=== PATIENT | male | born 1985 | race African-American/Black ===

== ENCOUNTER 2022-10-10 09:43 | Inpatient (IN) | payer MEDICAID ==
[~2022-10-10] VITALS: Ht 167.6 cm; Wt 52.2 kg
[2022-10-10] MEDS ORDERED: SODIUM CHLORIDE 0.9% 1000ML BAG (SEPSIS BOLUS) IV ONE (10:00)
[2022-10-10] MEDS ORDERED: VANCOMYCIN 1G PREMIX 200 ML IV ONE (10:00)
[2022-10-10] MEDS ORDERED: ACETAMINOPHEN 650MG SUPP PR STA (10:00)
[2022-10-10] MEDS ORDERED: PIPERACILLIN/TAZ 3.375G PREMIX 50 ML IV ONE (10:00)
[2022-10-10 11:24] LABS: BG BASE EXCESS 3.2 mmol/L (-2.0-2.0); BG CARBOXYHEMOGLOBIN 0.3 % (0.5-1.5); BG DEOXYHEMOGLOBIN 0.8 % (0.0-5.0); BG FRACTION INSPIRED OXYGEN 44; BG HCO3 ACT 25.6 mmol/L (22.0-26.0); BG METHEMOGLOBIN 0.4 % (0.0-1.5); BG OXYGEN SATURATION 99.2 % (92.0-98.5); BG OXYHEMOGLOBIN 98.5 % (94.0-97.0); BG PH 7.535 (7.350-7.450); BG PO2 205.4 mmHg (75.0-100.0); BG SAMPLE SITE RIGHT RADIAL; BG TOTAL HEMOGLOBIN 9.2 g/dL (12.0-18.0); BG VENT MODE MASK - SIMPLE
[2022-10-10 12:34] LABS: HEMATOCRIT. 27.1 % (42.0-52.0); HEMOGLOBIN. 8.6 g/dL (14.0-18.0); MEAN CORPUSCULAR HEMOGLOBIN 25.5 pg (28.0-32.0); MEAN CORPUSCULAR VOLUME 79.9 fL (80.0-94.0); MEAN PLATELET VOLUME 8.9 fl (7.4-10.4); PLATELET 303 x1000/uL (130-400); RED BLOOD CELL COUNT 3.39 mill/uL (4.7-6.1); RED CELL DISTRIBUTION WIDTH 19.7 % (11.6-14.6)
[2022-10-10 12:41] LABS: CHLORIDE 100 mEq/L (98-107)
[2022-10-10 12:44] LABS: INR 1.2; PROTHROMBIN TIME 12.4 sec (9.6-11.0)
[2022-10-10 12:50] LABS: CLARITY URINE CLOUDY (CLEAR); COLOR URINE YELLOW (YELLOW); KETONES URINE NEGATIVE (NEGATIVE); LEUKOCYTE ESTERASE URINE 2+ (NEGATIVE); NITRITE URINE POSITIVE (NEGATIVE); OCCULT BLOOD URINE NEGATIVE (NEGATIVE); PROTEIN URINE 1+ (NEGATIVE)
[2022-10-10 12:51] LABS: ETHANOL BLOOD < 10 mg/dL
[2022-10-10 13:24] LABS: NUCLEATED RED BLOOD CELLS 1 /100 WBC; PLATELET ESTIMATE NORMAL
[2022-10-10 13:28] LABS: *AMPHETAMINES SCREEN URINE NEGATIVE (NEGATIVE); *BARBITURATES SCREEN URINE NEGATIVE (NEGATIVE); *BENZODIAZEPINES SCREEN URINE NEGATIVE (NEGATIVE); *COCAINE SCREEN URINE NEGATIVE (NEGATIVE); CANNABINOID URINE SCREEN NEGATIVE (NEGATIVE); METHADONE URINE SCREEN NEGATIVE (NEGATIVE); OPIATES URINE SCREEN NEGATIVE (NEGATIVE); PHENCYCLIDINE URINE SCREEN NEGATIVE (NEGATIVE)
[2022-10-10] MEDS ORDERED: PIPERACILLIN/TAZ 3.375G PREMIX 50 ML IV NR (15:00)
[2022-10-10] MEDS: SODIUM CHLORIDE 0.9% 1,000 ML IV SCH (15:45)
[2022-10-10] MEDS ORDERED: HYDROCODONE/ACETAMINOPHEN 5/325MG TABLET PO PRN (15:45)
[2022-10-10] MEDS ORDERED: LORAZEPAM 2MG/ML CPJ IV PRN (15:45)
[2022-10-10] MEDS ORDERED: CEFTRIAXONE 1 G PREMIX 50 ML IV SCH (15:45)
[2022-10-10] MEDS ORDERED: ONDANSETRON HCL 4MG/2ML INJ IV PRN (15:45)
[2022-10-10] MEDS ORDERED: CEFTRIAXONE 1,000 MG in DEXTROSE 5% WATER 50 ML IV SCH (16:00)
[2022-10-10] MEDS ORDERED: NALOXONE HCL 0.4MG/ML VIAL IV PRN (16:00)
[2022-10-10] MEDS ORDERED: ACETAMINOPHEN 650MG SUPP PR NR (17:00)
[2022-10-10] MEDS: VANCOMYCIN 1G PREMIX 200 ML IV SCH (17:36)
[2022-10-10] MEDS: ENOXAPARIN 40MG/0.4ML SYR SUBCUT SCH (17:39)
[2022-10-10] MEDS: CEFEPIME 1,000 MG in DEXTROSE 5% WATER 50 ML IV SCH (18:56)
[2022-10-11] VITALS (11 sets, daily range): BP systolic 106–127; BP diastolic 68–91
[2022-10-11] MEDS: VANCOMYCIN 1G PREMIX 200 ML IV SCH
[2022-10-11] MEDS: SODIUM CHLORIDE 0.9% 1,000 ML IV SCH (02:10)
[2022-10-11] MEDS: CEFEPIME 1,000 MG in DEXTROSE 5% WATER 50 ML IV SCH ×2 (06:36→17:31)
[2022-10-11] MEDS: FOLIC ACID 1MG TABLET PO SCH (09:51)
[2022-10-11] MEDS ORDERED: VANCOMYCIN 1G PREMIX 200 ML IV SCH (13:00)
[2022-10-11] MEDS: VANCOMYCIN 750MG PREMIX 150 ML IV SCH (14:00)
[2022-10-11 14:15] LABS: MEAN CORPUSCULAR HEMOGLOBIN 25.5 pg (28.0-32.0); MEAN CORPUSCULAR VOLUME 82.3 fL (80.0-94.0); MEAN PLATELET VOLUME 8.7 fl (7.4-10.4); PLATELET 226 x1000/uL (130-400); RED BLOOD CELL COUNT 2.48 mill/uL (4.7-6.1); RED CELL DISTRIBUTION WIDTH 19.4 % (11.6-14.6)
[2022-10-11 14:34] LABS: HEMATOCRIT. 20.4 % (42.0-52.0); HEMOGLOBIN. 6.3 g/dL (14.0-18.0)
[2022-10-11 14:44] LABS: HEPATITIS B SURFACE ANTIGEN NEGATIVE
[2022-10-11] MEDS: ENOXAPARIN 40MG/0.4ML SYR SUBCUT SCH (16:12)
[2022-10-11 17:42] LABS: CHLORIDE 110 mEq/L (98-107)
[2022-10-11 17:58] LABS: CREATINE KINASE 278 IU/L (39-308)
[2022-10-11 20:23] LABS: PLATELET ESTIMATE NORMAL
[2022-10-12] VITALS (10 sets, daily range): BP systolic 96–132; BP diastolic 62–90
[2022-10-12] MEDS: VANCOMYCIN 750MG PREMIX 150 ML IV SCH ×2 (00:15→06:16)
[2022-10-12] MEDS: CEFEPIME 1,000 MG in DEXTROSE 5% WATER 50 ML IV SCH ×2 (06:15→17:51)
[2022-10-12 07:13] LABS: HEMATOCRIT. 23.4 % (42.0-52.0); HEMOGLOBIN. 7.6 g/dL (14.0-18.0); MEAN CORPUSCULAR HEMOGLOBIN 25.9 pg (28.0-32.0); MEAN CORPUSCULAR VOLUME 79.7 fL (80.0-94.0); MEAN PLATELET VOLUME 8.8 fl (7.4-10.4); PLATELET 306 x1000/uL (130-400); RED BLOOD CELL COUNT 2.94 mill/uL (4.7-6.1); RED CELL DISTRIBUTION WIDTH 19.1 % (11.6-14.6)
[2022-10-12 07:21] LABS: CHLORIDE 110 mEq/L (98-107)
[2022-10-12 10:39] LABS: PLATELET ESTIMATE NORMAL
[2022-10-12] MEDS: FOLIC ACID 1MG TABLET PO SCH (10:56)
[2022-10-12 15:45] LABS: BASOPHILS % 0.6 % (0.0-2.0); EOSINOPHILS % 1.2 % (0.0-5.0); HEMATOCRIT. 25.7 % (42.0-52.0); HEMOGLOBIN. 8.2 g/dL (14.0-18.0); LYMPHOCYTES % 12.2 % (20.0-50.0); MEAN CORPUSCULAR HEMOGLOBIN 25.6 pg (28.0-32.0); MEAN PLATELET VOLUME 8.2 fl (7.4-10.4); MONOCYTES % 4.8 % (2.0-8.0); NEUTROPHILS % 81.2 % (40.0-76.0); PLATELET 305 x1000/uL (130-400); RED BLOOD CELL COUNT 3.21 mill/uL (4.7-6.1)
[2022-10-12 15:57] LABS: CHLORIDE 111 mEq/L (98-107)
[2022-10-13] VITALS: BP 123/74
[2022-10-13 04:00] VITALS: BP 129/88
[2022-10-13] MEDS: CEFEPIME 1,000 MG in DEXTROSE 5% WATER 50 ML IV SCH ×2 (05:11→17:08)
[2022-10-13 07:11] LABS: CHLORIDE 110 mEq/L (98-107)
[2022-10-13 08:27] VITALS: BP 134/90
[2022-10-13 08:35] LABS: BASOPHILS % 0.4 % (0.0-2.0); HEMATOCRIT. 25.7 % (42.0-52.0); HEMOGLOBIN. 7.9 g/dL (14.0-18.0); LYMPHOCYTES % 17.9 % (20.0-50.0); MEAN CORPUSCULAR HEMOGLOBIN 25.9 pg (28.0-32.0); MEAN CORPUSCULAR VOLUME 84.2 fL (80.0-94.0); MEAN PLATELET VOLUME 8.7 fl (7.4-10.4); MONOCYTES % 9.1 % (2.0-8.0); NEUTROPHILS % 71.6 % (40.0-76.0); PLATELET 333 x1000/uL (130-400); RED BLOOD CELL COUNT 3.05 mill/uL (4.7-6.1); RED CELL DISTRIBUTION WIDTH 19.3 % (11.6-14.6)
[2022-10-13] MEDS: FOLIC ACID 1MG TABLET PO SCH (09:11)
[2022-10-13 12:00] VITALS: BP 124/90
[2022-10-13 16:23] VITALS: BP 102/54
[2022-10-13] MEDS ORDERED: [UNRECOGNIZED DRUG - REMARK] XX SCH (16:45)
[2022-10-13] MEDS: DEXT 5% IV SCH (19:19)
[2022-10-13] MEDS: WATER IV SCH (19:19)
[2022-10-13] MEDS: AMPHOTERICIN B LIPOSOME IV SCH (19:19)
[2022-10-13 20:00] VITALS: BP 120/86
[2022-10-13] MEDS: FLUCYTOSINE 500 MG CAPSULE PO SCH (20:46)
[2022-10-14] VITALS: BP 119/89
[2022-10-14] MEDS: FLUCYTOSINE 500 MG CAPSULE PO SCH ×4 (01:50→18:46)
[2022-10-14 04:00] VITALS: BP 123/85
[2022-10-14] MEDS: CEFEPIME 1,000 MG in DEXTROSE 5% WATER 50 ML IV SCH ×2 (05:42→18:44)
[2022-10-14 07:03] LABS: BASOPHILS % 0.8 % (0.0-2.0); EOSINOPHILS % 0.6 % (0.0-5.0); HEMATOCRIT. 28.1 % (42.0-52.0); HEMOGLOBIN. 8.9 g/dL (14.0-18.0); LYMPHOCYTES % 14.4 % (20.0-50.0); MEAN CORPUSCULAR VOLUME 82.3 fL (80.0-94.0); MEAN PLATELET VOLUME 8.8 fl (7.4-10.4); MONOCYTES % 8.1 % (2.0-8.0); NEUTROPHILS % 76.1 % (40.0-76.0); PLATELET 277 x1000/uL (130-400); RED BLOOD CELL COUNT 3.41 mill/uL (4.7-6.1); RED CELL DISTRIBUTION WIDTH 19.2 % (11.6-14.6)
[2022-10-14 08:00] VITALS: BP 128/92
[2022-10-14 08:05] LABS: CHLORIDE 110 mEq/L (98-107)
[2022-10-14 08:08] LABS: PHOSPHORUS 3.2 mg/dL (2.5-4.9)
[2022-10-14] MEDS: FOLIC ACID 1MG TABLET PO SCH (08:16)
[2022-10-14] MEDS: SULFAMETHOXAZOLE/TRIMETHOPRIM 800/160MG TABLET PO SCH (08:17)
[2022-10-14 09:09] LABS: ABSOLUTE LYMPHOCYTES 0.5 x10E3/uL (0.7-3.1); ABSOLUTE MONOCYTES 0.2 x10E3/uL (0.1-0.9); ABSOLUTE NEUTROPHILS 1.9 x10E3/uL (1.4-7.0); BASOPHILS 0 % (Not Estab.); HEMATOCRIT 27.3 % (37.5-51.0); HEMOGLOBIN 8.1 g/dL (13.0-17.7); IMMATURE GRANULOCYTES 0 % (Not Estab.); LYMPHOCYTES 18 % (Not Estab.); MEAN CORPUSCULAR HEMOGLOBIN 24.8 pg (26.6-33.0); MEAN CORPUSCULAR HGB CONC. 29.7 g/dL (31.5-35.7); MEAN CORPUSCULAR VOLUME 84 fL (79-97); MONOCYTES 9 % (Not Estab.); NEUTROPHILS 72 % (Not Estab.); PLATELETS 356 x10E3/uL (150-450); RBC 3.26 x10E6/uL (4.14-5.80); RED CELL DISTRIBUTION WIDTH 17.7 % (11.6-15.4); WBC 2.7 x10E3/uL (3.4-10.8)
[2022-10-14 12:00] VITALS: BP 128/80
[2022-10-14 13:06] LABS: % CD 3 POS. LYMPHOCYTES 39.6 % (57.5-86.2); % CD 4 POS. LYMPHOCYTES 1.2 % (30.8-58.5); % CD 8 POS. LYMPH 38.3 % (12.0-35.5); ABSOLUTE CD 3 198 /uL (622-2402); ABSOLUTE CD 4 HELPER 6 /uL (359-1519); ABSOLUTE CD 8 SUPPRESSOR 192 /uL (109-897); CD4/CD8 RATIO 0.03 (0.92-3.72)
[2022-10-14 16:00] VITALS: BP 122/86
[2022-10-14 20:00] VITALS: BP 131/85
[2022-10-14] MEDS: DEXT 5% IV SCH (20:26)
[2022-10-14] MEDS: AMPHOTERICIN B LIPOSOME IV SCH (20:26)
[2022-10-14] MEDS: WATER IV SCH (20:26)
[2022-10-15] VITALS: BP 120/80
[2022-10-15] MEDS: FLUCYTOSINE 500 MG CAPSULE PO SCH ×4 (00:18→18:45)
[2022-10-15 04:00] VITALS: BP 108/67
[2022-10-15 05:12] LABS: HIV 1 ABS Reactive (Non Reactive); HIV 2 ABS Non Reactive (Non Reactive); HIV SCREEN 4G Preliminary Reactive (Non Reactive); INTERPRETATION HIV-1 Positive (.)
[2022-10-15] MEDS: CEFEPIME 1,000 MG in DEXTROSE 5% WATER 50 ML IV SCH ×2 (06:24→18:44)
[2022-10-15 08:00] VITALS: BP 125/89
[2022-10-15] MEDS: FOLIC ACID 1MG TABLET PO SCH (08:48)
[2022-10-15] MEDS: SULFAMETHOXAZOLE/TRIMETHOPRIM 800/160MG TABLET PO SCH (08:50)
[2022-10-15] MEDS ORDERED: AZITHROMYCIN 500 MG TABLET PO SCH (09:00)
[2022-10-15] MEDS ORDERED: AZITHROMYCIN 40MG/ML SUSP 5ML ORAL SYR PO SCH (09:00)
[2022-10-15 12:00] VITALS: BP 125/85
[2022-10-15 16:00] VITALS: BP 120/81
[2022-10-15] MEDS: WATER IV SCH (19:56)
[2022-10-15] MEDS: DEXT 5% IV SCH (19:56)
[2022-10-15] MEDS: AMPHOTERICIN B LIPOSOME IV SCH (19:56)
[2022-10-15 20:00] VITALS: BP 105/77
[2022-10-16] VITALS: BP 112/72
[2022-10-16] MEDS: FLUCYTOSINE 500 MG CAPSULE PO SCH ×5 (00:35→23:36)
[2022-10-16] MEDS: ACETAMINOPHEN 650MG/20.3ML UDC GT PRN (01:07)
[2022-10-16 04:00] VITALS: BP 115/68
[2022-10-16 06:40] LABS: BASOPHILS % 0.6 % (0.0-2.0); EOSINOPHILS % 0.9 % (0.0-5.0); HEMATOCRIT. 25.3 % (42.0-52.0); HEMOGLOBIN. 7.9 g/dL (14.0-18.0); LYMPHOCYTES % 12.1 % (20.0-50.0); MEAN CORPUSCULAR HEMOGLOBIN 25.3 pg (28.0-32.0); MEAN CORPUSCULAR VOLUME 80.6 fL (80.0-94.0); MEAN PLATELET VOLUME 9.2 fl (7.4-10.4); MONOCYTES % 6.7 % (2.0-8.0); NEUTROPHILS % 79.7 % (40.0-76.0); PLATELET 272 x1000/uL (130-400); RED BLOOD CELL COUNT 3.14 mill/uL (4.7-6.1); RED CELL DISTRIBUTION WIDTH 19.6 % (11.6-14.6)
[2022-10-16 08:00] VITALS: BP_SYST 102; BP_DIAS 72; BP_DIAS 74
[2022-10-16] MEDS: FOLIC ACID 1MG TABLET PO SCH (09:09)
[2022-10-16] MEDS: SULFAMETHOXAZOLE/TRIMETHOPRIM 800/160MG TABLET PO SCH (09:10)
[2022-10-16 10:39] LABS: CHLORIDE 108 mEq/L (98-107)
[2022-10-16 12:08] VITALS: BP 116/84
[2022-10-16 16:00] VITALS: BP 100/52
[2022-10-16] MEDS: WATER IV SCH (18:33)
[2022-10-16] MEDS: AMPHOTERICIN B LIPOSOME IV SCH (18:33)
[2022-10-16] MEDS: DEXT 5% IV SCH (18:33)
[2022-10-16 20:00] VITALS: BP 111/66
[2022-10-17] VITALS: BP 106/67
[2022-10-17 04:00] VITALS: BP 112/72
[2022-10-17] MEDS: FLUCYTOSINE 500 MG CAPSULE PO SCH ×2 (05:28→12:20)
[2022-10-17 08:00] VITALS: BP_SYST 113; BP_SYST 123; BP_DIAS 71; BP_DIAS 75
[2022-10-17 09:07] LABS: QFT TB GOLD PLUS Indeterminate (Negative)
[2022-10-17] MEDS: FOLIC ACID 1MG TABLET PO SCH (09:17)
[2022-10-17] MEDS: SULFAMETHOXAZOLE/TRIMETHOPRIM 800/160MG TABLET PO SCH (09:17)
[2022-10-17 12:00] VITALS: BP 104/65
[2022-10-17 13:12] VITALS: BP 104/65
[2022-10-17] MEDS: ACETAMINOPHEN 650MG/20.3ML UDC GT PRN (13:34)
[2022-10-17 16:00] VITALS: BP 108/68
[2022-10-19 14:12] LABS: *HIV-1 RNA BY PCR 86720 copies/mL (.)
== END 2022-10-17 17:30 | DRG 890 ==
LOC: ER 09:43 → MICUSO 12:11 → 5EST 10-11 04:48 → 7EST 10-12 18:27
PROVIDERS: ADMIT Internal Medicine Nephrology; ATTEND Internal Medicine Nephrology
DX: A41.9 Sepsis, unspecified organism (principal); B20 Human immunodeficiency virus [HIV] disease; B45.1 Cerebral cryptococcosis; G82.50 Quadriplegia, unspecified; E43 Unspecified severe protein-calorie malnutrition; G93.41 Metabolic encephalopathy; D63.8 Anemia in other chronic diseases classified elsewhere; L89.619 Pressure ulcer of right heel, unspecified stage; N39.0 Urinary tract infection, site not specified; I10 Essential (primary) hypertension; F03.90 Unspecified dementia, unspecified severity, without behavioral disturbance, psychotic disturbance, mood disturbance, and anxiety; L89.629 Pressure ulcer of left heel, unspecified stage; H54.7 Unspecified visual loss; Z20.822 Contact with and (suspected) exposure to COVID-19; Z93.1 Gastrostomy status; Z74.01 Bed confinement status; Z86.61 Personal history of infections of the central nervous system; Z68.1 Body mass index [BMI] 19.9 or less, adult
CPT/HCPCS: 36415; 36600; 71045; 74176; 80048; 80053; 80076; 80202; 80305; 80320; 81003; 82040; 82140; 82375; 82550; 82805; 83605; 83735; 83880; 84100; 84134; 84145; 84443; 84484; 85025; 85651; 86359; 86360; 86480; 86592; 86635; 86698; 86701; 86702; 86788; 86789; 86803; 86850; 86900; 86920; 87340; 87389; 87426; 87536; 87899; 93005; 93970; 99291; A6261; J0289; J0692; J0696; J3370; J7030; J7060; G0480